=== PATIENT | male | born 1965 | race American Indian/Alaskan Native ===

== ENCOUNTER 2019-01-24 19:14 | Emergency (ER) | payer MEDICAID, OTHER ==
--- NOTE | 2019-01-24 19:48 | EDM.PDOC ---
ED HPI GENERAL MEDICAL PROBLEM - General Chief Complaint: General Stated Complaint: INFECTION Time Seen by Provider: 01/24/19 19:47 Source of Information: Reports: Patient - History of Present Illness INITIAL COMMENTS - FREE TEXT/NARRATIVE: 53 years old male patient with history of diabetes, also osteomyelitis of the left big toe status post amputation at [facility] a few weeks ago. Presented to the ER with a chief complaint of I am still having pain in my toe , infection might have came back, I needs the sutures to be taken out,. Patient is very agitated and aggressive towards the staff and myself from the beginning of the visit. Noncooperative. Not answering question appropriately. Initially he told me he had the surgery a week ago and obviously it was done several weeks ago. He said he was not given any antibiotic or any pain medication after the surgery. He said he had a follow-up appointment this last Sunday that he did not make and he said the clinic told them they were not be able to see him that day and he need to reschedule. Patient went to the [facility] ER earlier today and bear they report he was also aggressive and agitated with the staff. He said he had an x-ray that shows a infection came back. He said they did not give him any antibiotic except one pill in the ER however reviewing the note looks like he was discharged on Augmentin and advised to follow-up with motors assembler. Patient asking them to remove the stitches and he was told that they could not remove the stitches and need to be done by the motors assembler. Again the patient is very agitated, aggressive, using inappropriate language including the F word. I was not able to get a clear history from the patient. Left Foot Pain Score (Numeric/FACES): 10 - Related Data Allergies Allergy/AdvReac Type Severity Reaction Status Date / Time No Known Allergies Allergy Verified 01/24/19 19:41 Home Meds: Home Meds glyBURIDE [Glyburide] 5 mg PO BID 10/28/12 [History] metFORMIN [Glucophage] 1,000 mg PO BIDM 10/28/12 [History] Review of Systems - Review of Systems Review Of Systems: Unable To Obtain (Patient is noncooperative, aggressive and threatening) Reason Not Obtained: non cooperative, aggressive ED EXAM, GENERAL - Physical Exam Exam: See Below Exam Limited By: Uncooperative General Appearance: Alert, No Apparent Distress Nose: Normal Inspection, Normal Mucosa, No Blood Head: Atraumatic, Normocephalic Neck: Normal Inspection, Supple, Full Range of Motion Respiratory/Chest: No Respiratory Distress, No Accessory Muscle Use Extremities: Other (No erythema or swelling or discharge. Stitches dry and intact. Mild tenderness on palpation. CMS intact.) Neurological: Alert, Oriented, Normal Cognition, Normal Gait Skin Exam: Warm, Dry, Intact, Normal Color, No Rash Course - Vital Signs Last Recorded V/S: Last Vital Signs Temp 36.6 C 01/24/19 19:55 Pulse 99 01/24/19 19:55 Resp 16 01/24/19 19:55 BP 138/81 01/24/19 19:55 Pulse Ox 98 01/24/19 19:55 - Radiology Interpretation Free Text/Narrative:: Patient was seen shortly after arrival. He has very agitated, aggressive towards the staff and myself. Uncooperative. I did repeatedly ask him to cooperate with us so we be able to help him. Unclear exactly what he is looking for. He is focused on removing the stitches and I told them that he probably needs to see the motors assembler or orthopedic doctor to remove these stitches as I am not comfortable removing those now and I'm not sure if I should or not. I did offer him do blood work, imaging of his foot and possibly CT scan, consult with orthopedic instrument and controls technician, prescribing antibiotic and pain medication. I never got any clear answer from him. He keeps asking his significant other at the bedside that he need to get out of here because this is not a very good hospital and not good staff. I asked him what skin we do to make him more comfortable and cooperative. He said we are not good hospital and not good staff. He asked for gauze and tape so he can old the dressing himself and my nurse give him nonadhesive dressing, he through it away twice and he stood up and was about to become physical with my nurse. We both felt threatened and unsafe and left the room and the police was contacted. Patient stood up to leave and was given AMA form. Patient signed the AMA form and left. Departure - Departure Time of Disposition: 20:59 Disposition: Against Medical Advice 07 Condition: Good Clinical Impression: Postoperative complication - Discharge Information *PRESCRIPTION DRUG MONITORING PROGRAM REVIEWED*: Not Applicable *COPY OF PRESCRIPTION DRUG MONITORING REPORT IN PATIENT ALEYDA: Not Applicable Referrals: PCP,None [Primary Care Provider] - Forms: ED Department Discharge - Assessment/Plan Plan: Left AGAINST MEDICAL ADVICE
[2019-01-24 19:55] VITALS: BP 138/81; PULSE 99
== END 2019-01-24 20:35 | disposition left against medical advice (07) ==
LOC: EDSEX 19:14 → JP.ED 19:14
DX: T87.9 Unspecified complications of amputation stump (principal)
CPT/HCPCS: 99283